=== PATIENT | male | born 1945 | race Caucasian/White ===

== ENCOUNTER 2018-12-22 18:54 | Observation (INO) | payer MEDICARE, BC ==
[~2018-12-22] VITALS: Ht 162.6 cm; Wt 79.6 kg
[2018-12-22 19:38] LABS: BASOPHILS ABSOLUTE AUTO 0.09 K/mm3 (0.00-0.23); BASOPHILS PERCENT AUTO 1 % (0-2); EOSINOPHILS ABSOLUTE AUTO 0.15 K/mm3 (0.00-0.68); EOSINOPHILS PERCENT AUTO 1 % (0-6); Hematocrit 37.8 % (37.0-53.0); Hemoglobin 12.8 g/dL (13.5-17.5); IMMATURE GRAN ABSOLUTE AUTO 0.08 K/mm3 (0.00-0.10); IMMATURE GRAN PERCENT AUTO 0 % (0-1); LYMPHOCYTES ABSOLUTE AUTO 3.05 K/mm3 (0.84-5.20); LYMPHOCYTES PERCENT AUTO 16 % (21-46); MONOCYTES ABSOLUTE AUTO 1.13 K/mm3 (0.16-1.47); MONOCYTES PERCENT AUTO 6 % (4-13); Mean Corpuscular HGB 32.8 pg (26.0-34.0); Mean Corpuscular HGB Conc 33.9 g/dL (31.5-36.5); Mean Corpuscular Volume 97 fL (80-100); Mean Platelet Volume 10.6 fL (9.1-12.4); NEUTROPHILS ABSOLUTE AUTO 14.51 K/mm3 (1.96-9.15); NEUTROPHILS PERCENT AUTO 76 % (41-73); Platelet Count 317 K/mm3 (150-400); RDW Coefficient Variation 14.5 % (11.7-14.2); RDW Standard Deviation 51.8 fL (35.1-46.3); White Blood Cell Count 19.01 K/mm3 (4.00-11.30)
[2018-12-22 19:59] LABS: Albumin, Blood 3.9 g/dL (3.4-5.0); Bilirubin, Total 0.6 mg/dL (0.1-1.0); Bun/Creatinine Ratio 20.4 (12.0-20.0); Calcium, Blood 9.1 mg/dL (8.5-10.1); Creatinine, Blood 1.47 mg/dL (0.60-1.20); Potassium, Blood 3.6 mmol/L (3.5-5.5); Total Protein, Blood 7.9 g/dL (6.4-8.2)
[2018-12-22] MEDS ORDERED: DOXA4 PO (21:06)
[2018-12-22] MEDS ORDERED: LOSARTAN POTAS100 MG PO (21:06)
[2018-12-22] MEDS ORDERED: CLOBETASOL PRO0.5 GM (21:06)
[2018-12-22] MEDS ORDERED: HYDCHL25 PO (21:07)
[2018-12-22] MEDS ORDERED: FAMO20 PO (21:07)
[2018-12-22] MEDS ORDERED: ATOR80 PO (21:07)
[2018-12-22 23:02] LABS: Source, Urine Clean Catch
[2018-12-22 23:07] LABS: Bilirubin, Urine Neg (Neg); Blood, Urine Neg (Neg); Glucose Qualitative, Urine Neg (Neg); Ketones, Urine 2+ (Neg); Leukocyte Esterase, Urine Neg (Neg); Nitrite, Urine Neg (Neg); Protein, Urine 1+ (Neg); Urobilinogen, Urine NORM (Normal)
[2018-12-22 23:09] LABS: Appearance, Urine Clear (Clear); Color, Urine Yellow (P-Yellow)
[2018-12-23 00:02] LABS: Influenza A Negative (NEGATIVE); Influenza B Negative (NEGATIVE)
[2018-12-23] MEDS ORDERED: Metformin HCl500 MG PO (02:49)
[2018-12-23 05:06] LABS: Hematocrit 35.5 % (37.0-53.0); Hemoglobin 11.9 g/dL (13.5-17.5); Mean Corpuscular HGB 32.1 pg (26.0-34.0); Mean Corpuscular HGB Conc 33.5 g/dL (31.5-36.5); Mean Corpuscular Volume 96 fL (80-100); Mean Platelet Volume 10.5 fL (9.1-12.4); Platelet Count 305 K/mm3 (150-400); RDW Coefficient Variation 14.6 % (11.7-14.2); RDW Standard Deviation 50.8 fL (35.1-46.3); Red Blood Cell Count 3.71 M/mm3 (4.30-5.90); White Blood Cell Count 15.67 K/mm3 (4.00-11.30)
[2018-12-23 05:34] LABS: Albumin, Blood 3.2 g/dL (3.4-5.0); Albumin/Globulin Ratio 0.9 (0.8-1.8); Bilirubin, Total 0.6 mg/dL (0.1-1.0); Bun/Creatinine Ratio 19.7 (12.0-20.0); Calcium, Blood 8.5 mg/dL (8.5-10.1); Creatinine, Blood 1.27 mg/dL (0.60-1.20); Globulin, Blood 3.6 g/dL (2.2-4.0); Potassium, Blood 3.4 mmol/L (3.5-5.5); Total Protein, Blood 6.8 g/dL (6.4-8.2)
[2018-12-23] MEDS ORDERED: Aspirin EC81 MG PO (12:32)
[2018-12-23] MEDS ORDERED: NITR.4SL SL (12:33)
[2018-12-23] MEDS ORDERED: Hair, Skin & N1 EACH PO (12:34)
[2018-12-23] MEDS ORDERED: MELA3 PO (12:34)
[2018-12-23] MEDS ORDERED: TRIA15CR3 TOP (12:35)
--- NOTE | 2018-12-23 17:52 | NUR ---
SHIFT SUMMARY APPROX 1420 HRS RECEIVED HANDOFF FROM ED NURSE. HE WAS TRANSFERED TO THE UNIT WITHIN NORMAL LIMITS. ORIENTED TO THE UNIT. PT ADMITTED FOR MEDICAL OBSERVATION. PT REACTED TO NEW MEDICATION WITH SIDE EFFECT OF EXTREME DIZZYNESS. PT IS A&O X4. PT IS CONTINENT AND NORMALLY INDEPENDENT. PT IS ON ROOM AIR. AND MONITORED BY TELEMETRY. HE HAS A 1ST DEGREE BLOCK 70'S BPM PER PCU. HE HAS PRE DIABETES AND TAKES ORAL MEDICATION
--- NOTE | 2018-12-24 04:21 | NUR ---
SHIFT SUMMARY THE PATIENT PRESENTED THIS SHIFT WITH VITALS WNL, A&O X4, AND WITH LUNGS THAT WERE CLEAR, BUT DIM AT THE BASES. THE PATIENT COMPLAINED OF BEING DIZZY HE GOT UP TO THE BED SIDE TO URINATE. THE PATIENT HAS SLEPT MOST OF THE SHIFT, WILL CONTINUE TO MONITOR.
[2018-12-24 05:19] LABS: BASOPHILS ABSOLUTE AUTO 0.11 K/mm3 (0.00-0.23); BASOPHILS PERCENT AUTO 1 % (0-2); EOSINOPHILS PERCENT AUTO 3 % (0-6); Hematocrit 34.4 % (37.0-53.0); Hemoglobin 11.3 g/dL (13.5-17.5); IMMATURE GRAN ABSOLUTE AUTO 0.03 K/mm3 (0.00-0.10); IMMATURE GRAN PERCENT AUTO 0 % (0-1); LYMPHOCYTES ABSOLUTE AUTO 4.09 K/mm3 (0.84-5.20); LYMPHOCYTES PERCENT AUTO 36 % (21-46); MONOCYTES ABSOLUTE AUTO 1.07 K/mm3 (0.16-1.47); MONOCYTES PERCENT AUTO 9 % (4-13); Mean Corpuscular HGB Conc 32.8 g/dL (31.5-36.5); Mean Corpuscular Volume 98 fL (80-100); Mean Platelet Volume 10.6 fL (9.1-12.4); NEUTROPHILS PERCENT AUTO 51 % (41-73); Platelet Count 284 K/mm3 (150-400); RDW Coefficient Variation 14.8 % (11.7-14.2); RDW Standard Deviation 54.1 fL (35.1-46.3); Red Blood Cell Count 3.53 M/mm3 (4.30-5.90)
[2018-12-24 06:06] LABS: Anion Gap 9 mmol/L (6-16); Blood Urea Nitrogen 23 mg/dL (8-24); Bun/Creatinine Ratio 18.5 (12.0-20.0); CO2, Blood 26 mmol/L (21-32); Chloride, Blood 110 mmol/L (98-108); Creatinine, Blood 1.24 mg/dL (0.60-1.20); Glomerular Filtration Rate >60 (60-); Glucose, Blood 89 mg/dL (70-99); Phosphorus, Blood 2.4 mg/dL (2.5-4.9); Potassium, Blood 3.9 mmol/L (3.5-5.5); Sodium, Blood 145 mmol/L (136-145)
--- NOTE | 2018-12-24 10:39 | NUR ---
Patient was sitting up in bed and alert when I entered patient's room. I introduced myself and patient welcomed me. Patient shared about his health history, his thoughts on congregational and his complaints about the service from the hospital staff. I listened empathically, explored patient's belief system reinforced his helpful attitudes and actions and offered emotional support. Patient complaints centered around care that was missed in the little things. Loud laughter and dancing in the E.R. department, impersonal gathering of patient medical information with no personal introduction or interest in the patient as a person at the shift change and being treated differently by a nurse after patient had complained to a doctor about a missed preceducre and misinformation given by that nurse. Patient stated the the bright side was that his current nurse, Joelle, from the medical floor was very personalable and attentive. Patient thanked me for my care and time. Information received will be passed on with permission of the patient.
--- NOTE | 2018-12-24 13:28 | NUR ---
WALKING TRIAL PT WALKED WITH A FWW & GAIT BELT, ME AND BOILING OFF WINDER STANDBY ASSIST. PT WALKED APPROX 50 FEET. PT STATED THE DIZZYNESS IS STILL THERE AND HE FELT WEAK. HE STATED THAT IT IS BETTER NOW THAN ON ADMIT, HOWEVER. HE DID NOT FALL OR STUMBLE DURING THIS TRIAL. WE DID TAKE IT SLOWLY.
[2018-12-24] MEDS ORDERED: Acetaminophen325 M1 PO (14:55)
[2018-12-24] MEDS ORDERED: DOCU100 PO (14:56)
[2018-12-24] MEDS ORDERED: BISA10S PR (14:56)
[2018-12-24] MEDS ORDERED: ONDA4ODT MM (14:57)
[2018-12-24] MEDS ORDERED: MOTION RELIEF25 MG PO (14:57)
[2018-12-24] MEDS ORDERED: Prochlorperazin10 MG PO (14:58)
[2018-12-24] MEDS ORDERED: POTA20LUD PO (14:58)
--- NOTE | 2018-12-24 16:27 | NUR ---
DISCHARGE NOTE IV DC'D WNL. PT PROVIDED WITH VERBAL AND HARDCOPY DISCHARGE INSTRUCTIONS. MEDICATIONS FAXED TO PREFERED PHARMACY. PT TAKEN VIA WHEELCHAIR WITH ESCORT ON DISCHARGE. PT'S PERSONAL POSSESSIONS GATHERED AND PROVIDED TO PT. PT DRESSED WITH 'S HELP. PT HAD NO FURTHER QUESTIONS.
== END 2018-12-24 16:18 | disposition home or self-care (01) ==
LOC: ER 18:54 → ERHOLD 18:55 → MEDS 12-23 12:50
PROVIDERS: Emergency Medicine; Family Medicine; Physician Assistant; ADMIT Internal Medicine
DX: R42 Dizziness and giddiness (principal); N18.3 Chronic kidney disease, stage 3 (moderate); R29.898 Other symptoms and signs involving the musculoskeletal system; D72.829 Elevated white blood cell count, unspecified; N40.0 Benign prostatic hyperplasia without lower urinary tract symptoms; Z79.899 Other long term (current) drug therapy
CPT/HCPCS: 36415; 70450; 71046; 80053; 80069; 85025; 85027; 87804; 93005; 93010; 96361; 96372; 96372-59; 96374; 99285-25; G0378; J1650; J2405; J7030

== ENCOUNTER → 2024-12-31 | Outpatient (CLI) | payer MEDICARE, BC ==
[~2024-12-31] MED LIST: ATOR80 PO; Acetaminophen325 M1 PO; Aspirin EC81 MG PO; BISA10S PR; CLOBETASOL PRO0.5 GM; CLOBETTC TOP; CYCL10 PO; DOCU100 PO; DOXA4 PO; FAMO20 PO; FINA5 PO; HYDCHL25 PO; Hair, Skin & N1 EACH PO; LIDO700A20 TOP; LOSARTAN POTAS100 MG PO; MELA3 PO; MOTION RELIEF25 MG PO; Metformin HCl500 MG PO; NITR.4SL SL; ONDA4ODT MM; POTA20LUD PO; Prochlorperazin10 MG PO; TAMS.4ER PO; TRIA15CR3 TOP
[2024-12-31 15:37] LABS: BASOPHILS ABSOLUTE AUTO 0.05 K/mm3 (0.00-0.23); BASOPHILS PERCENT AUTO 0 % (0-2); EOSINOPHILS ABSOLUTE AUTO 0.05 K/mm3 (0.00-0.68); EOSINOPHILS PERCENT AUTO 0 % (0-6); Hematocrit 37.8 % (37.0-53.0); IMMATURE GRAN ABSOLUTE AUTO 0.08 K/mm3 (0.00-0.10); IMMATURE GRAN PERCENT AUTO 1 % (0-1); LYMPHOCYTES ABSOLUTE AUTO 2.01 K/mm3 (0.84-5.20); LYMPHOCYTES PERCENT AUTO 12 % (21-46); MONOCYTES ABSOLUTE AUTO 1.05 K/mm3 (0.16-1.47); MONOCYTES PERCENT AUTO 6 % (4-13); Mean Corpuscular HGB 32.4 pg (26.0-34.0); Mean Corpuscular HGB Conc 34.4 g/dL (31.5-36.5); Mean Corpuscular Volume 94 fL (80-100); Mean Platelet Volume 10.4 fL (9.1-12.4); NEUTROPHILS ABSOLUTE AUTO 13.46 K/mm3 (1.96-9.15); NEUTROPHILS PERCENT AUTO 81 % (41-73); Platelet Count 363 K/mm3 (150-400); RDW Coefficient Variation 13.6 % (11.7-14.2); Red Blood Cell Count 4.01 M/mm3 (4.30-5.90)
[2024-12-31 15:47] LABS: Albumin, Blood 3.4 g/dL (3.4-5.0); Albumin/Globulin Ratio 0.7 (0.8-1.8); Bilirubin, Total 0.7 mg/dL (0.1-1.0); Bun/Creatinine Ratio 17.3 (12.0-20.0); Calcium, Blood 8.8 mg/dL (8.5-10.1); Creatinine, Blood 2.14 mg/dL (0.60-1.20); Globulin, Blood 4.7 g/dL (2.2-4.0); Potassium, Blood 3.5 mmol/L (3.5-5.5); Total Protein, Blood 8.1 g/dL (6.4-8.2)
== END ==
LOC: LAB SHORT 15:32 → LAB 15:32
PROVIDERS: Physician Assistant
DX: R53.83 Other fatigue (principal)
CPT/HCPCS: 80053; 85025

== ENCOUNTER → 2025-01-01 | Outpatient (CLI) | payer MEDICARE, BC ==
[2025-01-01 12:53] LABS: BASOPHILS ABSOLUTE AUTO 0.05 K/mm3 (0.00-0.23); BASOPHILS PERCENT AUTO 0 % (0-2); EOSINOPHILS PERCENT AUTO 1 % (0-6); Hematocrit 37.9 % (37.0-53.0); IMMATURE GRAN ABSOLUTE AUTO 0.12 K/mm3 (0.00-0.10); IMMATURE GRAN PERCENT AUTO 1 % (0-1); LYMPHOCYTES ABSOLUTE AUTO 2.41 K/mm3 (0.84-5.20); LYMPHOCYTES PERCENT AUTO 15 % (21-46); MONOCYTES ABSOLUTE AUTO 1.42 K/mm3 (0.16-1.47); MONOCYTES PERCENT AUTO 9 % (4-13); Mean Corpuscular HGB 32.2 pg (26.0-34.0); Mean Corpuscular HGB Conc 34.3 g/dL (31.5-36.5); Mean Corpuscular Volume 94 fL (80-100); Mean Platelet Volume 10.3 fL (9.1-12.4); NEUTROPHILS ABSOLUTE AUTO 11.53 K/mm3 (1.96-9.15); NEUTROPHILS PERCENT AUTO 74 % (41-73); Platelet Count 378 K/mm3 (150-400); RDW Coefficient Variation 13.5 % (11.7-14.2); RDW Standard Deviation 46.5 fL (35.1-46.3); Red Blood Cell Count 4.04 M/mm3 (4.30-5.90); White Blood Cell Count 15.63 K/mm3 (4.00-11.30)
[2025-01-01 12:57] LABS: Bun/Creatinine Ratio 18.6 (12.0-20.0); Calcium, Blood 9.1 mg/dL (8.5-10.1); Creatinine, Blood 1.99 mg/dL (0.60-1.20); Potassium, Blood 3.3 mmol/L (3.5-5.5)
== END ==
LOC: LAB 12:49 → LAB SHORT 12:49
PROVIDERS: Physician Assistant
DX: J18.9 Pneumonia, unspecified organism (principal)
CPT/HCPCS: 80048; 85025

== ENCOUNTER → 2025-01-03 | Outpatient (CLI) | payer MEDICARE, BC ==
[2025-01-03 11:59] LABS: BASOPHILS ABSOLUTE AUTO 0.07 K/mm3 (0.00-0.23); BASOPHILS PERCENT AUTO 1 % (0-2); EOSINOPHILS ABSOLUTE AUTO 0.17 K/mm3 (0.00-0.68); EOSINOPHILS PERCENT AUTO 1 % (0-6); Hematocrit 36.6 % (37.0-53.0); Hemoglobin 12.7 g/dL (13.5-17.5); IMMATURE GRAN ABSOLUTE AUTO 0.08 K/mm3 (0.00-0.10); IMMATURE GRAN PERCENT AUTO 1 % (0-1); LYMPHOCYTES PERCENT AUTO 16 % (21-46); MONOCYTES ABSOLUTE AUTO 1.46 K/mm3 (0.16-1.47); MONOCYTES PERCENT AUTO 11 % (4-13); Mean Corpuscular HGB 32.4 pg (26.0-34.0); Mean Corpuscular HGB Conc 34.7 g/dL (31.5-36.5); Mean Corpuscular Volume 93 fL (80-100); Mean Platelet Volume 10.1 fL (9.1-12.4); NEUTROPHILS ABSOLUTE AUTO 9.03 K/mm3 (1.96-9.15); NEUTROPHILS PERCENT AUTO 70 % (41-73); Platelet Count 421 K/mm3 (150-400); RDW Coefficient Variation 13.6 % (11.7-14.2); RDW Standard Deviation 46.3 fL (35.1-46.3); Red Blood Cell Count 3.92 M/mm3 (4.30-5.90); White Blood Cell Count 12.91 K/mm3 (4.00-11.30)
[2025-01-03 12:11] LABS: Bun/Creatinine Ratio 17.1 (12.0-20.0); Creatinine, Blood 1.93 mg/dL (0.60-1.20); Potassium, Blood 3.5 mmol/L (3.5-5.5)
== END | disposition home or self-care (01) ==
LOC: LAB SHORT 11:55 → LAB 11:55
PROVIDERS: Physician Assistant
DX: N18.9 Chronic kidney disease, unspecified (principal)
CPT/HCPCS: 80048; 85025

== ENCOUNTER 2025-06-28 17:14 | Emergency (ER) | payer MEDICARE, BC ==
[~2025-06-28] VITALS: Ht 162.6 cm; Wt 79.4 kg
[2025-06-28 18:12] LABS: BASOPHILS ABSOLUTE AUTO 0.12 K/mm3 (0.00-0.23); BASOPHILS PERCENT AUTO 1 % (0-2); EOSINOPHILS ABSOLUTE AUTO 0.32 K/mm3 (0.00-0.68); EOSINOPHILS PERCENT AUTO 2 % (0-6); Hematocrit 38.5 % (37.0-53.0); Hemoglobin 13.0 g/dL (13.5-17.5); IMMATURE GRAN ABSOLUTE AUTO 0.08 K/mm3 (0.00-0.10); IMMATURE GRAN PERCENT AUTO 1 % (0-1); LYMPHOCYTES ABSOLUTE AUTO 3.69 K/mm3 (0.84-5.20); LYMPHOCYTES PERCENT AUTO 25 % (21-46); MONOCYTES ABSOLUTE AUTO 1.30 K/mm3 (0.16-1.47); MONOCYTES PERCENT AUTO 9 % (4-13); Mean Corpuscular HGB Conc 33.8 g/dL (31.5-36.5); Mean Corpuscular Volume 95 fL (80-100); NEUTROPHILS ABSOLUTE AUTO 9.31 K/mm3 (1.96-9.15); NEUTROPHILS PERCENT AUTO 63 % (41-73); NRBC ABSOLUTE 0.00 K/mm3 (0.00-0.02); NRBC Auto 0.0 /100 WBC (0.0-0.2); Platelet Count 285 K/mm3 (150-400); RDW Coefficient Variation 14.6 % (11.7-14.2); RDW Standard Deviation 51.3 fL (35.1-46.3)
[2025-06-28 19:04] LABS: Alanine Aminotransfer (ALT/SGP 26.0 U/L (12-78); Albumin, Blood 3.4 g/dL (3.4-5.0); Albumin/Globulin Ratio 0.9 (0.8-1.8); Anion Gap 7.0 mmol/L (3-11); Aspartate Aminotrans (AST/SGOT 23.0 U/L (12-37); Bilirubin, Total 0.4 mg/dL (0.1-1.0); Blood Urea Nitrogen 30.0 mg/dL (8-24); CO2, Blood 22.0 mmol/L (21-32); Calcium, Blood 8.6 mg/dL (8.5-10.1); Chloride, Blood 108.0 mmol/L (98-108); Creatinine, Blood 2.03 mg/dL (0.60-1.20); Globulin, Blood 3.9 g/dL (2.2-4.0); Glucose, Blood 103.0 mg/dL (70-99); Potassium, Blood 3.7 mmol/L (3.5-5.5); Sodium, Blood 133.0 mmol/L (136-145); Total Protein, Blood 7.3 g/dL (6.4-8.2)
[2025-06-28 20:45] VITALS: BP 163/86
== END 2025-06-28 20:50 | disposition home or self-care (01) ==
LOC: ER 17:14
PROVIDERS: Emergency Medicine
DX: R07.2 Precordial pain (principal); I45.10 Unspecified right bundle-branch block; E87.1 Hypo-osmolality and hyponatremia; N18.9 Chronic kidney disease, unspecified; D64.9 Anemia, unspecified; I25.2 Old myocardial infarction; Z95.5 Presence of coronary angioplasty implant and graft; Z79.82 Long term (current) use of aspirin; Z79.899 Other long term (current) drug therapy
CPT/HCPCS: 71046; 80053; 84484; 85025; 93005; 93010; 99285-25

== ENCOUNTER 2025-09-12 09:58 | Day surgery (SDC) | payer MEDICARE, BC ==
[~2025-09-12] VITALS: Ht 162.6 cm; Wt 82.5 kg
[~2025-09-12 09:58] MED LIST changes: +CeFAZolin Sodium 2,000 MG VIAL ONE
[2025-09-12] MEDS ORDERED: METOPROLOL SUCC25 MG PO (10:32)
[2025-09-12] MEDS ORDERED: FentaNYL Citrate 50 MCG/ML 2 ML Injection ONE (10:32)
[2025-09-12] MEDS ORDERED: Crestor40 MG PO (10:34)
[2025-09-12] MEDS ORDERED: AMLODIPINE BESYL5 MG PO (10:35)
[2025-09-12] MEDS ORDERED: Cetirizine HCl10 MG PO (10:36)
[2025-09-12] MEDS ORDERED: PRAV20 PO (10:36)
[2025-09-12] MEDS ORDERED: AREDS (10:37)
[2025-09-12] MEDS ORDERED: Glycopyrrolate 0.2 MG/ML 5ML VIAL ONE (11:38)
--- NOTE | 2025-09-12 12:25 | NUR ---
09/12/25 Leta5 Mary Galvez [address] DR WALKER AT BEDSIDE. GAVE ORDER FOR PT TO GET OXYBUTYN FOR PRESSURE
[2025-09-12 13:14] VITALS: BP 174/79
== END 2025-09-12 13:30 | disposition home or self-care (01) ==
LOC: ORSCSDS 09:58
PROVIDERS: Urology
PROC: 0V507ZZ Destruction of Prostate, Via Natural or Artificial Opening (ICD-10-PCS; principal; 2025-09-12 11:00)
DX: N40.1 Benign prostatic hyperplasia with lower urinary tract symptoms (principal); I25.10 Atherosclerotic heart disease of native coronary artery without angina pectoris; E11.9 Type 2 diabetes mellitus without complications; K21.9 Gastro-esophageal reflux disease without esophagitis; I25.2 Old myocardial infarction; Z79.899 Other long term (current) drug therapy; Z79.82 Long term (current) use of aspirin
CPT/HCPCS: 82947; A4346; A9270; J0690; J2704; J3010; J7120

== ENCOUNTER 2025-09-15 11:48 | Inpatient (IN) | payer MEDICARE, BC ==
[~2025-09-15] VITALS: Ht 162.6 cm; Wt 79.3 kg
[~2025-09-15 11:48] MED LIST changes: -CEFP200 PO; -FURO40 PO; -MIRALAX17 GM PO; -POTA10T PO
[2025-09-15 16:35] LABS: Source, Urine Clean Catch
[2025-09-15 16:48] LABS: Bilirubin, Urine Neg (Neg); Color, Urine Yellow (P-Yellow); Glucose Qualitative, Urine Neg (Neg); Ketones, Urine Neg (Neg); Leukocyte Esterase, Urine 1+ (Neg); Protein, Urine 3+ (Neg); Specific Gravity, Urine 1.010 (1.003-1.022); Urobilinogen, Urine NORM (Normal)
[2025-09-15 16:57] LABS: Red Blood Cells, Urine 50-100 /hpf (0-2)
[2025-09-15 17:49] LABS: pH Blood Venous 7.38 (7.34-7.37)
[2025-09-15] MEDS ORDERED: Furosemide 10 MG / ML 2ML Vial IV ONE (19:00)
[2025-09-15] MEDS ORDERED: Ondansetron HCl 2 MG / ML 2ML Vial IV PRN (19:15)
[2025-09-15] MEDS ORDERED: FLU VACC TS2025(65UP)/MF59C/PF 45 MCG/0.5 ML SYRINGE IM SCH (19:20)
[2025-09-15] MEDS ORDERED: CeFAZolin Sodium 1,000 MG in NS 50 ML IV SCH (19:30)
[2025-09-15 19:53] LABS: Prothrombin Time Results 11.0 Sec (9.7-11.5)
[2025-09-15] MEDS ORDERED: Enoxaparin 30 MG/0.3 ML SYR SC SCH (21:00)
[2025-09-15 22:11] VITALS: BP 169/85
[2025-09-15 23:57] VITALS: BP 153/86
[2025-09-16] MEDS ORDERED: NS 250 ML IV PRN (02:30)
[2025-09-16 04:06] VITALS: BP 163/77
[2025-09-16 05:04] LABS: BASOPHILS ABSOLUTE AUTO 0.07 K/mm3 (0.00-0.23); BASOPHILS PERCENT AUTO 1 % (0-2); EOSINOPHILS ABSOLUTE AUTO 0.16 K/mm3 (0.00-0.68); EOSINOPHILS PERCENT AUTO 1 % (0-6); Hematocrit 36.4 % (37.0-53.0); Hemoglobin 12.1 g/dL (13.5-17.5); IMMATURE GRAN ABSOLUTE AUTO 0.11 K/mm3 (0.00-0.10); IMMATURE GRAN PERCENT AUTO 1 % (0-1); LYMPHOCYTES ABSOLUTE AUTO 1.95 K/mm3 (0.84-5.20); LYMPHOCYTES PERCENT AUTO 14 % (21-46); MONOCYTES ABSOLUTE AUTO 1.53 K/mm3 (0.16-1.47); MONOCYTES PERCENT AUTO 11 % (4-13); Mean Corpuscular HGB Conc 33.2 g/dL (31.5-36.5); Mean Corpuscular Volume 96 fL (80-100); NEUTROPHILS ABSOLUTE AUTO 10.45 K/mm3 (1.96-9.15); NEUTROPHILS PERCENT AUTO 73 % (41-73); NRBC ABSOLUTE 0.00 K/mm3 (0.00-0.02); NRBC Auto 0.0 /100 WBC (0.0-0.2); Platelet Count 317 K/mm3 (150-400); RDW Coefficient Variation 14.3 % (11.7-14.2); RDW Standard Deviation 50.7 fL (35.1-46.3)
[2025-09-16 05:42] LABS: Alanine Aminotransfer (ALT/SGP 21.0 U/L (12-78); Albumin, Blood 3.2 g/dL (3.4-5.0); Albumin/Globulin Ratio 0.9 (0.8-1.8); Anion Gap 8.0 mmol/L (3-11); Aspartate Aminotrans (AST/SGOT 18.0 U/L (12-37); Bilirubin, Total 0.5 mg/dL (0.1-1.0); Blood Urea Nitrogen 34.0 mg/dL (8-24); CO2, Blood 28.0 mmol/L (21-32); Calcium, Blood 8.7 mg/dL (8.5-10.1); Chloride, Blood 106.0 mmol/L (98-108); Creatinine, Blood 1.95 mg/dL (0.60-1.20); Globulin, Blood 3.4 g/dL (2.2-4.0); Glucose, Blood 117.0 mg/dL (70-99); Potassium, Blood 3.9 mmol/L (3.5-5.5); Sodium, Blood 138.0 mmol/L (136-145); Total Protein, Blood 6.6 g/dL (6.4-8.2)
--- NOTE | 2025-09-16 06:08 | NUR ---
Shift Summary Pt admitted to this unit from ED for volume OL. Per report he rcvd Lasix in ED and had heavy output. He had good output this shift, over 1L. Pt is NPO except for one bottle of water which an ED doctor gave him and said he could drink (per pt). He is AOx4, independent in the room. He has +2 BL edema. Lung sounds are clear, no coughing. Per chart he has superficial veinous thrombosis above the L knee which is not causing any problems, good perfusion bilaterally in all extremeties. Pt has been increasingly short of breath in the last week, he is rcving empiric IV ABX in case of infection. Plan for VQ scan this AM.
[2025-09-16 07:21] VITALS: BP 168/78
[2025-09-16] MEDS ORDERED: Betamethasone/Clotrimazole Crm 15 gm TOP SCH (09:00)
--- NOTE | 2025-09-16 11:10 | NUR ---
Pt laying in bed, a/ox4, pleasant and cooperative with care, follows commands well, denies pain except right calf pain, states it's cramping, and is painful with touch, notified, lungs are clear t/o, resp even and unlabored, no couigh noted, on r/a, hrr, 2+ edema noted to left foot, none on right, pp+2 on right, piv to rac, puffed up whith flush, new piv placed to left ac, flushes well with good blood return, pt tolerated well, btx4, abd flat soft nontender, voids via urinal clear yellow urine, skin c/w/d, kevan ortega, call light in reach.
--- NOTE | 2025-09-16 16:42 | NUR ---
ASSUMED CARE, REPORT RECEIVED, PATIENT A/O X4 RESTING IN BED WITH AT BEDSIDE. REQUESTING NAUSEA MEDICATION.
[2025-09-16 19:12] VITALS: BP 136/77
[2025-09-16] MEDS ORDERED: Magnesium Hydroxide Conc 10 ML UDC PO PRN (20:05)
[2025-09-16] MEDS ORDERED: Polyethylene Glycol 3350 17 gm PO SCH (20:10)
[2025-09-16 23:06] VITALS: BP 124/59
[2025-09-17 03:08] VITALS: BP 133/68
[2025-09-17 05:13] LABS: Anion Gap 11.0 mmol/L (3-11); Blood Urea Nitrogen 35.0 mg/dL (8-24); CO2, Blood 25.0 mmol/L (21-32); Calcium, Blood 8.9 mg/dL (8.5-10.1); Chloride, Blood 104.0 mmol/L (98-108); Creatinine, Blood 2.11 mg/dL (0.60-1.20); Glucose, Blood 116.0 mg/dL (70-99); Magnesium, Blood 2.4 mg/dL (1.6-2.4); Potassium, Blood 3.7 mmol/L (3.5-5.5); Sodium, Blood 136.0 mmol/L (136-145)
--- NOTE | 2025-09-17 06:06 | NUR ---
SHIFT SUMMARY A/Ox4, VSS ON RA. PT REPORTS CONSTIPATION; REQUESTED MIRALAX. NO RESULTS AT THIS TIME. PT DENIES PAIN, MUSCLE CRAMPING, NAUSEA, SOB. NO ACUTE CHANGES OVERNIGHT. SAFETY PRECAUTIONS IN PLACE, CALL LIGHT IN REACH.
[2025-09-17 07:34] VITALS: BP 173/75
[2025-09-17 11:10] VITALS: BP 130/79
[2025-09-17] MEDS ORDERED: MIRALAX17 GM PO (12:00)
[2025-09-17] MEDS ORDERED: FURO40 PO (12:01)
--- NOTE | 2025-09-17 12:25 | NUR ---
PATIENT DISCHARGED TO HOME.OUT TO LOBBY VIA WHEEL CHAIR. SPOUSE TO DRIFVE HIM HOME. PATIENT AND SPOUSE EDUCATED ON 1800ML FLUID RESTRICTION. WILL FOLLOW UP WITH AND . VERVBALIZED DC INSTRUCTIONS. IV DC'D INTACT.
--- NOTE | 2025-09-17 13:37 | NUR ---
DISCHARGE SUMMARY PATIENT DISCHARGED HOME WITH INSTRUCTIONS TO KEEP FOLLOW UP NEPHROLOGY APPT. DISCHARGE PACKET GIVEN AND REVIEWED, QUESTIONS ANSWERED, VERBALIZED UNDERSTANDING, PER BREAK NURSE REPORT. IV REMOVED WITHOUT COMPLICATION.
== END 2025-09-17 12:27 | disposition home or self-care (01) | DRG 291 ==
LOC: ER 11:48 → MEDS 11:49 → ERHOLD 11:49 → MEDS 22:00 → ENPENDDIS 09-17 10:18 → MEDS 09-17 12:27
PROVIDERS: Emergency Medicine; Internal Medicine; Student in an Organized Health Care Education/Training Program; ADMIT Internal Medicine
DX: I13.0 Hypertensive heart and chronic kidney disease with heart failure and stage 1 through stage 4 chronic kidney disease, or unspecified chronic kidney disease (principal); I50.31 Acute diastolic (congestive) heart failure; I82.812 Embolism and thrombosis of superficial veins of left lower extremity; N17.9 Acute kidney failure, unspecified; R79.1 Abnormal coagulation profile; I25.10 Atherosclerotic heart disease of native coronary artery without angina pectoris; D63.1 Anemia in chronic kidney disease; N18.30 Chronic kidney disease, stage 3 unspecified; Z90.81 Acquired absence of spleen; I25.2 Old myocardial infarction; Z95.5 Presence of coronary angioplasty implant and graft; Z87.891 Personal history of nicotine dependence; Z79.82 Long term (current) use of aspirin
CPT/HCPCS: 36415; 71046; 78580; 80048; 80053; 81001; 82803; 83735; 84484; 85025; 85379; 85610; 93005; 93010; 93306; 93971; 96365; 96372; 96375; 96376; 99285-25; A9270; A9540; G0378; J0690; J1650; J1938; J2405

== ENCOUNTER → 2025-09-15 | Outpatient (CLI) | payer MEDICARE, BC ==
[~2025-09-15] MED LIST changes: +AMLODIPINE BESYL5 MG PO; +AREDS; +CEFP200 PO; -CeFAZolin Sodium 2,000 MG VIAL ONE; +Cetirizine HCl10 MG PO; +Crestor40 MG PO; +FURO40 PO; +METOPROLOL SUCC25 MG PO; +MIRALAX17 GM PO; +POTA10T PO; +PRAV20 PO
[2025-09-15 10:57] LABS: BASOPHILS ABSOLUTE AUTO 0.07 K/mm3 (0.00-0.23); BASOPHILS PERCENT AUTO 0 % (0-2); EOSINOPHILS ABSOLUTE AUTO 0.09 K/mm3 (0.00-0.68); EOSINOPHILS PERCENT AUTO 1 % (0-6); Hematocrit 38.8 % (37.0-53.0); Hemoglobin 13.2 g/dL (13.5-17.5); IMMATURE GRAN ABSOLUTE AUTO 0.09 K/mm3 (0.00-0.10); IMMATURE GRAN PERCENT AUTO 1 % (0-1); LYMPHOCYTES ABSOLUTE AUTO 3.14 K/mm3 (0.84-5.20); LYMPHOCYTES PERCENT AUTO 19 % (21-46); MONOCYTES ABSOLUTE AUTO 1.64 K/mm3 (0.16-1.47); MONOCYTES PERCENT AUTO 10 % (4-13); Mean Corpuscular HGB Conc 34.0 g/dL (31.5-36.5); Mean Corpuscular Volume 95 fL (80-100); NEUTROPHILS ABSOLUTE AUTO 11.74 K/mm3 (1.96-9.15); NEUTROPHILS PERCENT AUTO 70 % (41-73); NRBC ABSOLUTE 0.00 K/mm3 (0.00-0.02); NRBC Auto 0.0 /100 WBC (0.0-0.2); Platelet Count 347 K/mm3 (150-400); RDW Coefficient Variation 14.5 % (11.7-14.2); RDW Standard Deviation 50.2 fL (35.1-46.3)
[2025-09-15 11:05] LABS: Alanine Aminotransfer (ALT/SGP 22.0 U/L (12-78); Albumin, Blood 3.4 g/dL (3.4-5.0); Albumin/Globulin Ratio 0.8 (0.8-1.8); Anion Gap 14.0 mmol/L (3-11); Aspartate Aminotrans (AST/SGOT 26.0 U/L (12-37); Bilirubin, Total 0.5 mg/dL (0.1-1.0); Blood Urea Nitrogen 38.0 mg/dL (8-24); CO2, Blood 26.0 mmol/L (21-32); Calcium, Blood 8.9 mg/dL (8.5-10.1); Chloride, Blood 101.0 mmol/L (98-108); Creatinine, Blood 2.31 mg/dL (0.60-1.20); Globulin, Blood 4.1 g/dL (2.2-4.0); Glucose, Blood 154.0 mg/dL (70-99); Potassium, Blood 3.7 mmol/L (3.5-5.5); Sodium, Blood 137.0 mmol/L (136-145); Total Protein, Blood 7.5 g/dL (6.4-8.2)
== END ==
LOC: LAB 10:53 → LAB SHORT 10:53
DX: R60.0 Localized edema (principal); R33.9 Retention of urine, unspecified
CPT/HCPCS: 80053; 83880; 85025; 87086

== ENCOUNTER → 2025-11-08 | Outpatient (CLI) | payer MEDICARE, BC ==
[~2025-11-08] MED LIST changes: +CEFP200 PO; +FURO40 PO; +MIRALAX17 GM PO; +POTA10T PO
== END | disposition home or self-care (01) ==
LOC: LAB SHORT 17:48 → LAB 17:48
DX: N39.0 Urinary tract infection, site not specified (principal); R31.9 Hematuria, unspecified
CPT/HCPCS: 87086